=== PATIENT | female | born 1985 | race Caucasian/White ===

== ENCOUNTER 2023-03-04 17:32 | Inpatient (IN) | payer OTHER ==
[2023-03-04 17:51] VITALS: BMI 23.3
[2023-03-04] MEDS ORDERED: NALOXONE HCL 0.4 MG/ML VIAL IM PRN (19:09)
[2023-03-04] MEDS ORDERED: MAG HYDROX/AL HYDROX/SIMETH 30 ML UNIT-DOSE CUP PO PRN (19:09)
[2023-03-04] MEDS ORDERED: LOPERAMIDE HCL 2 MG CAPSULE PO PRN (19:09)
[2023-03-04] MEDS ORDERED: ONDANSETRON *ODT* 4 MG TABLET SL PRN (19:09)
[2023-03-04] MEDS ORDERED: POLYETHYLENE GLYCOL (HEALTHYLAX) 3350 17 GM PACKET PO PRN (19:09)
[2023-03-04] MEDS ORDERED: P-EPHED 60MG/TRIPROLIDI 2.5MG TABLET PO PRN (19:09)
[2023-03-04] MEDS ORDERED: guaiFENesin 600 MG TABLET.ER (FP) PO PRN (19:09)
[2023-03-04] MEDS ORDERED: BISMUTH SUBSALICYLATE 524 MG/30 ML PO PRN (19:09)
[2023-03-04] MEDS ORDERED: ACETAMINOPHEN 325 MG TABLET (FP) PO PRN (19:09)
[2023-03-04] MEDS ORDERED: MAGNESIUM HYDROX 2400MG/30ML ORAL SUSPENSION 30 ML CUP PO PRN (19:09)
[2023-03-04] MEDS ORDERED: NALOXONE HCL (KLOXXADO) 8 MG SPRAY NS PRN (19:09)
[2023-03-04] MEDS ORDERED: DICYCLOMINE HCL 10 MG CAPSULE PO PRN (19:09)
[2023-03-04] MEDS ORDERED: BENZONATATE 200 MG CAPSULE PO PRN (19:09)
[2023-03-04] MEDS ORDERED: IBUPROFEN 400 MG TABLET (FP) PO PRN (19:09)
[2023-03-04] MEDS ORDERED: BENZOCAINE/MENTHOL (CHLORASEPTIC ) LOZENGE MM PRN (19:09)
[2023-03-04] MEDS ORDERED: hydrOXYzine PAMOATE 25 MG CAPSULE (FP) PO PRN (19:09)
[2023-03-04] MEDS: NICOTINE POLACRILEX 2 MG GUM BUC PRN (20:59)
[2023-03-04] MEDS ORDERED: MELATONIN 5 MG TABLETS PO SCH (22:00)
[2023-03-04] MEDS: BACITRACIN 0.9 GM PACKET TP SCH (22:18)
[2023-03-04] MEDS: METHOCARBAMOL 500 MG TABLET PO PRN (22:18)
[2023-03-04] MEDS: THIAMINE HCL 100 MG TABLET (FP) PO SCH (22:18)
[2023-03-04] MEDS: CLINDAMYCIN HCL 150 MG CAPSULE (FP) PO SCH (23:50)
[2023-03-05] MEDS: CLINDAMYCIN HCL 150 MG CAPSULE (FP) PO SCH ×4 (05:40→23:05)
[2023-03-05] MEDS: BACITRACIN 0.9 GM PACKET TP SCH ×2 (10:32→22:07)
[2023-03-05] MEDS: PRENATAL VITAMINS W/ FOLIC ACID TABLET (FP) PO SCH (10:32)
[2023-03-05] MEDS: METHOCARBAMOL 500 MG TABLET PO PRN (10:33)
[2023-03-05] MEDS: IBUPROFEN 600 MG TABLET (FP) PO PRN (10:36)
[2023-03-05] MEDS: NICOTINE POLACRILEX 2 MG GUM BUC PRN (10:37)
[2023-03-05 10:54] LABS: HEMATOCRIT 41.1 % (32.4-45.2); HEMOGLOBIN 13.3 GM/dL (10.7-15.3); MCH 28.7 pg (25.7-33.7); MCHC 32.4 g/dl (32.0-36.0); MEAN CELL VOLUME 88.6 fl (80-96); MEAN PLT VOLUME 8.8 fl (7.5-11.1); PLATELET COUNT 222 10^3/uL (134-434); RBC 4.63 M/mm3 (3.60-5.2); RDW 15.5 % (11.6-15.6); WHITE BLOOD COUNT 5.2 K/mm3 (4.0-10.0)
[2023-03-05 11:20] LABS: POTASSIUM 4.6 mmol/L (3.5-5.1)
[2023-03-05 11:22] LABS: CALCIUM 8.4 mg/dL (8.5-10.1)
[2023-03-05 11:23] LABS: ALBUMIN 2.8 g/dl (3.4-5.0); BLOOD UREA NITROGEN 19.3 mg/dL (7-18)
[2023-03-05 11:26] LABS: CREATININE 0.6 mg/dL (0.55-1.3)
[2023-03-05 11:27] LABS: BILIRUBIN,TOTAL 0.5 mg/dL (0.2-1); TOT PROT 5.6 g/dl (6.4-8.2)
[2023-03-05] MEDS ORDERED: methaDONE HCL 10 MG TABLET (FOR DETOX USE ONLY) PO ONE ×2 (14:43→16:45)
[2023-03-05] MEDS ORDERED: cloNIDine HCL 0.1 MG TABLET PO PRN (14:43)
[2023-03-05] MEDS: NICOTINE 10 MG CARTRIDGE (INHALER) IH PRN (19:16)
[2023-03-05] MEDS: THIAMINE HCL 100 MG TABLET (FP) PO SCH (22:08)
[2023-03-05] MEDS: traZODone HCL 50 MG TABLET (FP) PO SCH (22:10)
[2023-03-06] MEDS: CLINDAMYCIN HCL 150 MG CAPSULE (FP) PO SCH ×3 (05:40→17:34)
[2023-03-06] MEDS: PRENATAL VITAMINS W/ FOLIC ACID TABLET (FP) PO SCH (09:40)
[2023-03-06] MEDS: BACITRACIN 0.9 GM PACKET TP SCH ×2 (09:40→23:19)
[2023-03-06] MEDS: NICOTINE 10 MG CARTRIDGE (INHALER) IH PRN (11:12)
[2023-03-06] MEDS: NICOTINE POLACRILEX 2 MG GUM BUC PRN ×2 (11:13→17:14)
[2023-03-06] MEDS: METHOCARBAMOL 500 MG TABLET PO PRN (16:56)
[2023-03-06] MEDS: IBUPROFEN 600 MG TABLET (FP) PO PRN (18:04)
[2023-03-06 21:17] VITALS: BP 117/82; PULSE 96; RESP 17; TEMP 97.8
[2023-03-06] MEDS: traZODone HCL 50 MG TABLET (FP) PO SCH (23:20)
[2023-03-06] MEDS: THIAMINE HCL 100 MG TABLET (FP) PO SCH (23:20)
[2023-03-07] MEDS ORDERED: methaDONE HCL 10 MG TABLET (FOR DETOX USE ONLY) PO ONE (10:00)
[2023-03-09] MEDS ORDERED: methaDONE HCL 10 MG TABLET (FOR DETOX USE ONLY) PO ONE (10:00)
== END 2023-03-06 20:36 | disposition left against medical advice (07) | DRG 770 ==
LOC: YASAS 17:32 → Y6N 19:06
PROVIDERS: ADMIT Allergy & Immunology; ATTEND Surgery
PROC: HZ2ZZZZ Detoxification Services for Substance Abuse Treatment (ICD-10-PCS; principal; 2023-03-04)
DX: F11.23 Opioid dependence with withdrawal (principal); F14.20 Cocaine dependence, uncomplicated; F17.210 Nicotine dependence, cigarettes, uncomplicated; F19.282 Other psychoactive substance dependence with psychoactive substance-induced sleep disorder; Z86.59 Personal history of other mental and behavioral disorders; Z95.0 Presence of cardiac pacemaker; Z28.310 Unvaccinated for COVID-19; Z28.9 Immunization not carried out for unspecified reason
CPT/HCPCS: 36415; 80053; 81025; 85027; 86780; 87635; 87811; 93005; 93010